=== PATIENT | male | born 1995 | race Caucasian/White ===

== ENCOUNTER 2020-03-25 22:07 | Emergency (ER) | payer MEDICAID, SELFPAY ==
[~2020-03-25] VITALS: Ht 167.6 cm; Wt 93.0 kg
[2020-03-25 22:10] VITALS: BP 146/89; Ht 167.6 cm; Wt 93.0 kg
== END 2020-03-25 22:48 | disposition home or self-care (01) ==
LOC: ED 22:07
DX: J02.8 Acute pharyngitis due to other specified organisms (principal); Z20.828 Contact with and (suspected) exposure to other viral communicable diseases
CPT/HCPCS: U0003-CS